=== PATIENT | male | born 1990 | race Caucasian/White ===

== ENCOUNTER 2023-12-18 20:55 | Emergency (ER) | payer OTHER, MEDICAID ==
[2023-12-18] MEDS: Take Home: Ondansetron 4 MG Tab.DIS, 5 Tab Pack PO ONE (21:30)
[2023-12-18] MEDS: Take Home: Amoxicillin/Clavulanate K 875-125 MG Tab, 2 Tab Pack PO ONE (21:30)
== END 2023-12-18 21:40 | disposition home or self-care (01) ==
LOC: VM.ED 20:55
DX: S51.851A Open bite of right forearm, initial encounter (principal); W54.0XXA Bitten by dog, initial encounter
CPT/HCPCS: 99283; A9270-GY; Q0162